=== PATIENT | female | born 1990 | race Caucasian/White ===

== ENCOUNTER 2021-04-27 16:20 | Emergency (ER) | payer OTHER ==
[~2021-04-27] VITALS: Ht 157.5 cm; Wt 59.0 kg
[~2021-04-27 16:20] MED LIST: ALBU90OI INH; Amoxicillin500 MG PO; BENZ100A PO; Bactrim 400-801 EACH PO; HYDR1TAB94 PO; Norco 5-325 Ta1 EACH PO; Ultram50 MG PO; Zithromax250 MG PO; Zofran8 MG PO
[2021-04-27 17:13] LABS: Source, Urine Clean Catch
[2021-04-27 17:25] LABS: Appearance, Urine Clear (Clear); Bilirubin, Urine Neg (Neg); Blood, Urine Neg (Neg); Color, Urine Yellow (P-Yellow); Glucose Qualitative, Urine Neg (Neg); Ketones, Urine Neg (Neg); Leukocyte Esterase, Urine 1+ (Neg); Nitrite, Urine Neg (Neg); Protein, Urine Neg (Neg); Urobilinogen, Urine NORM (Normal)
[2021-04-27 17:50] LABS: Bacteria Not Seen /hpf; Red Blood Cells, Urine Rare /hpf (0-2); Squamous Epithelial Cells Few /hpf (Few); White Blood Cells, Urine 0-2 /hpf (0-5)
[2021-04-27] MEDS ORDERED: CEPH500 PO (18:19)
[2021-04-27] MEDS ORDERED: Diflucan150 MG PO (18:19)
== END 2021-04-27 18:26 | disposition home or self-care (01) ==
LOC: ER 16:20
PROVIDERS: Physician Assistant
DX: B37.3 Candidiasis of vulva and vagina (principal); N39.0 Urinary tract infection, site not specified; Z88.2 Allergy status to sulfonamides; Z88.1 Allergy status to other antibiotic agents; Z79.899 Other long term (current) drug therapy; Z87.891 Personal history of nicotine dependence
CPT/HCPCS: 81001; 87086; 99284

== ENCOUNTER 2021-05-30 09:22 | Day surgery (SDC) | payer OTHER ==
[~2021-05-30] VITALS: Ht 149.9 cm; Wt 54.4 kg
[~2021-05-30 09:22] MED LIST changes: +CEPH500 PO; +Diflucan150 MG PO
--- NOTE | 2021-05-30 10:17 | NUR ---
[facility] in [facility] warming gown applied. Patient states colon prep results clear. History, Chart, Medications and Allergies reviewed before start of procedure.Lungs clear T/O to Auscultation. Patient confirms NPO status and agrees with scheduled surgery. Pre-Op teaching done. Pt verbalizes understanding. Patient States Post-Procedure ride home has been arranged.
--- NOTE | 2021-05-30 11:24 | NUR ---
05/30/21 1124 [address] Best History, Chart, Medications and Allergies reviewed before start of procedure.Patient confirms NPO status and agrees with scheduled surgery.3-LEAD EKG REVIEWED WITH PHYSICIAN PRIOR TO START OF PROCEDURE.O2 VIA N/C INTACT THROUGHOUT SEDATION/PROCEDURE. MONITOR INTACT WITH CONTINUOUS PULSE OXIMETRY AND INTERMITTENT BP.PATIENT DETERMINED TO BE ASA APPROPRIATE FOR PROPOFOL SEDATION PRIOR TO START OF PROCEDURE BY
--- NOTE | 2021-05-30 13:08 | NUR ---
PATIENT RESTING QUIETLY, NO MOANING, NO LONGER TEARFUL. SIGNIFICANT OTHER TO DRIVE HOME. Discharge instructions reviewed with patient. Patient verbalizes understanding. Copy given to patient to take home.
--- NOTE | 2021-05-30 13:36 | NUR ---
UP TO DRESS. GAIT STEADY. VSS. PATIENT DESIRES DISCHARGE.
== END 2021-05-30 13:36 | disposition home or self-care (01) ==
LOC: ORSCMMR 09:22 → ORD 10:30 → ORSCMMR 10:30
PROVIDERS: Surgery
PROC: 0DBE8ZX Excision of Large Intestine, Via Natural or Artificial Opening Endoscopic, Diagnostic (ICD-10-PCS; principal; 2021-05-30 10:30)
PROC: 0DB78ZX Excision of Stomach, Pylorus, Via Natural or Artificial Opening Endoscopic, Diagnostic (ICD-10-PCS; principal; 2021-05-30 10:30)
DX: R13.10 Dysphagia, unspecified (principal); K92.1 Melena; R10.13 Epigastric pain; R19.4 Change in bowel habit; K44.9 Diaphragmatic hernia without obstruction or gangrene; F17.210 Nicotine dependence, cigarettes, uncomplicated
CPT/HCPCS: 88305; 88342; J2250; J2704; J7120

== ENCOUNTER 2021-07-26 23:33 | Emergency (ER) | payer OTHER ==
[~2021-07-26] VITALS: Ht 149.9 cm; Wt 54.4 kg
== END 2021-07-27 02:25 | disposition left against medical advice (07) ==
LOC: ER 23:33
DX: Z53.21 Procedure and treatment not carried out due to patient leaving prior to being seen by health care provider (principal)